=== PATIENT | male | born 1960 | race Caucasian/White ===

== ENCOUNTER → 2020-07-26 11:40 | Outpatient (CLI) | payer OTHER, SELFPAY ==
--- NOTE | 2020-07-26 11:57 | DI.CT.S_ITS ---
PROCEDURE: CT KIDNEY URETER BLADDER (KUB) INDICATIONS: FREQUENCY OF URINATION TECHNIQUE: Noncontrast 5 mm thick sections acquired from the diaphragms to the symphysis. 5 mm thick coronal and sagittal reformats were then performed. For radiation dose reduction, the following was used: automated exposure control, adjustment of mA and/or kV according to patient size. COMPARISON: None. FINDINGS: Image quality: Excellent. Lung bases: Lung bases are clear. Heart size is normal. Urinary system: Both kidneys are normal in size. No kidney stones. No hydronephrosis or perinephric fat stranding. Both ureters appear non-dilated throughout their expected courses. Bladder demonstrates a diffusely thickened wall which is incompletely distended. No bladder calculi. Prostate gland is enlarged. Other solid organs: Liver is mildly prominent with steatosis. Punctate areas of calcification are also incidentally noted. Calcifications are also noted within the spleen. Gallbladder is unremarkable. Pancreas is normal in contours. Spleen is normal in size. 10 mmPICC was placed by the intravenous therapy team from the left side. Fluoroscopic spot film demonstrates tip of PICC overlying the SVC/right atrial junction. And 6 mm right adrenal nodules with Hounsfield units measuring approximately -22 and -3 respectively. Peritoneum and bowel: Unenhanced bowel loops demonstrate normal wall thickness and caliber. No free fluid or air. Moderate colonic diverticula are present. Nodes and vessels: No retroperitoneal or mesenteric adenopathy by size criteria. Aorta and inferior vena cava are normal in caliber. Abdominal wall: Fat containing umbilical hernia is present with bowel loop demonstrating partial advancement into the subcutaneous anterior abdominal wall. Pelvis: No free pelvic fluid. Fat containing bilateral inguinal hernias are present. Bones: No suspicious bony lesions. No vertebral body compression fractures. IMPRESSION: 1. No renal or ureteral calculi. 2. Bladder demonstrates a diffusely thickened wall. This could be secondary to incomplete distention. However, recommend correlation is cystitis which can have a similar appearance on imaging. 3. Prostate hypertrophy is present. 4. Diverticulosis. 5. Bilateral adrenal nodules, considered benign based on Hounsfield units. Dictated by: Ceci Herzog M.D. on 07/26/2020 at 14:48 Approved by: Ceci Herzog M.D. on 07/26/2020 at 14:52
== END ==
PROVIDERS: PCP Internal Medicine; Referring Provider Internal Medicine; Visit Provider Internal Medicine
DX: N40.1 Benign prostatic hyperplasia with lower urinary tract symptoms (principal); R39.15 Urgency of urination; R39.81 Functional urinary incontinence; R31.9 Hematuria, unspecified; R35.0 Frequency of micturition; K76.0 Fatty (change of) liver, not elsewhere classified; K57.90 Diverticulosis of intestine, part unspecified, without perforation or abscess without bleeding; E27.9 Disorder of adrenal gland, unspecified; K40.20 Bilateral inguinal hernia, without obstruction or gangrene, not specified as recurrent; K42.9 Umbilical hernia without obstruction or gangrene
CPT/HCPCS: 74176